=== PATIENT | male | born 1955 | race Asian ===

== ENCOUNTER 2016-05-20 23:18 | Inpatient (IN) | payer MEDICAID ==
[~2016-05-20] VITALS: Ht 172.7 cm; Wt 53.5 kg
[~2016-05-20 23:18] MED LIST: AMLO5TAB2 PO; ASPI81TA27 PO; ENAL2.5T PO; METO-159 PO; SIMV-13 PO; WARF3TAB22 PO
[2016-05-20] MEDS ORDERED: SODIUM CHLORIDE 0.9% 1,000 ML IVB ONE (23:33)
[2016-05-20] MEDS ORDERED: PANTOPRAZOLE SODIUM 80 MG in SODIUM CHL 0.9% 60 ML IV ONE (23:45)
[2016-05-20] MEDS ORDERED: PANTOPRAZOLE SODIUM 40 MG/10 ML VIAL IV ONE ×2 (23:45→23:54)
[2016-05-20] MEDS ORDERED: ONDANSETRON HCL 4 MG/2 ML VIAL IV ONE (23:45)
[2016-05-21] MEDS ORDERED: PANTOPRAZOLE SODIUM 40 MG/10 ML VIAL IV ONE (00:14)
[2016-05-21 01:26] LABS: Lactic Acid 3.5 mmol/L (0.4-2.0)
[2016-05-21 01:30] LABS: REFLEX LACTIC ACID YES OR NO YES
[2016-05-21 02:40] LABS: Basophils # (auto) 0 uL; Eosinophils # (auto) 0 uL; Hematocrit 49.7 % (41.0-53.0); Hemoglobin 16.7 g/dL (13.5-17.5); Lymphocytes # (auto) 0.5 uL; Lymphocytes % (auto) 4.1 % (10.0-50.0); Mean Corpuscular Hemoglobin 32.6 pg (28.0-32.0); Mean Corpuscular Hgb Conc. 33.7 g/dL (32.0-36.0); Mean Corpuscular Volume 96.8 fL (80.0-100.0); Mean Platelet Volume 9.5 fL (7.4-10.4); Monocytes # (auto) 0.2 uL; Monocytes % (auto) 1.6 % (0.0-12.0); Neutrophils # (auto) 11.1 uL; Neutrophils % (auto) 94.3 % (37.0-80.0); Platelet Count (auto) 160 10^3/uL (140-450); Red Cell Distribution Width 14.1 % (11.6-16.0); White Blood Cell 11.8 10^3/uL (4.4-10.8)
[2016-05-21 02:55] LABS: INR 1.1 (0.9-1.15); Prothrombin Time 11.3 sec (9.37-12.3)
[2016-05-21 02:59] LABS: Albumin 3.3 g/dL (3.4-5.0); BUN/Creatinine Ratio 16.4; Magnesium 2.3 mg/dL (1.6-2.6); Potassium 3.4 mmol/L (3.5-5.1)
[2016-05-21 03:04] LABS: Bilirubin, Total 1.4 mg/dL (0.2-1.0); Total Protein 7.3 g/dL (6.4-8.2)
[2016-05-21] MEDS ORDERED: PROMETHAZINE HCL 25 MG/ML 1ML IV PRN (07:00)
[2016-05-21] MEDS ORDERED: LORazepam 2MG/ML-1ML VIAL IV PRN (07:00)
[2016-05-21] MEDS ORDERED: NITROGLYCERIN 0.4 MG SL TAB SL PRN (07:00)
[2016-05-21] MEDS ORDERED: MORPHINE SULF INJ 2 MG/ML SYRINGE 1ML IV PRN (07:00)
[2016-05-21] MEDS: SODIUM CHLORIDE 0.9% 1,000 ML IV SCH ×2 (07:20→21:26)
[2016-05-21 09:00] VITALS: BP 149/100
[2016-05-21] MEDS ORDERED: cefTRIAXone 1GM/50ML D5W 50 ML IV SCH (10:00)
[2016-05-21] MEDS ORDERED: CEFOTETAN 1GM/D5W 50ML BAG 50 ML IV SCH (10:00)
[2016-05-21] MEDS ORDERED: PANTOPRAZOLE SODIUM 40 MG/10 ML VIAL IV SCH (10:00)
[2016-05-21 12:11] LABS: Hematocrit 50.6 % (41.0-53.0); Hemoglobin 16.9 g/dL (13.5-17.5)
[2016-05-21] MEDS: PANTOPRAZOLE SODIUM 40 MG/10 ML VIAL IV SCH ×2 (12:12→21:26)
[2016-05-21 12:56] VITALS: BP 157/110
[2016-05-21] MEDS ORDERED: METOPROLOL TARTRATE 50 MG TAB PO ONE (16:45)
[2016-05-21 16:53] VITALS: BP 154/103
[2016-05-21 18:10] LABS: Hematocrit 51.1 % (41.0-53.0); Hemoglobin 17.1 g/dL (13.5-17.5)
[2016-05-21] MEDS: MORPHINE SULF INJ 2 MG/ML SYRINGE 1ML IV PRN (18:50)
[2016-05-21 22:00] VITALS: BP_SYST 122; BP_SYST 135; BP_DIAS 101; BP_DIAS 69
[2016-05-22 01:28] LABS: Hematocrit 47.8 % (41.0-53.0); Hemoglobin 15.9 g/dL (13.5-17.5)
[2016-05-22 03:16] LABS: Urine Bilirubin Negative (Negative); Urine Color Brown (Yellow); Urine Glucose Normal (Normal); Urine Mucus FEW (None Seen); Urine Nitrite Negative (Negative); Urine RBC 331 /hpf (0 - 3); Urine Squamous Epithelial Cell FEW /hpf (<5); Urine pH 6.5 (5.0-8.0)
[2016-05-22 03:17] LABS: Urine Blood 2+ /uL (Negative); Urine Ketone 1+ (Negative)
[2016-05-22 05:00] VITALS: BP 123/82
[2016-05-22 05:24] LABS: Basophils # (auto) 0 uL; Basophils % (auto) 0.2 % (0.0-2.0); Eosinophils # (auto) 0 uL; Eosinophils % (auto) 0.1 % (0.0-7.0); Hemoglobin 15.4 g/dL (13.5-17.5); Lymphocytes # (auto) 1.4 uL; Lymphocytes % (auto) 13.9 % (10.0-50.0); Mean Corpuscular Hemoglobin 32.4 pg (28.0-32.0); Mean Corpuscular Hgb Conc. 33.4 g/dL (32.0-36.0); Mean Corpuscular Volume 96.9 fL (80.0-100.0); Mean Platelet Volume 9.7 fL (7.4-10.4); Monocytes # (auto) 0.6 uL; Neutrophils # (auto) 7.9 uL; Neutrophils % (auto) 79.8 % (37.0-80.0); Platelet Count (auto) 178 10^3/uL (140-450); Red Cell Distribution Width 14.6 % (11.6-16.0); White Blood Cell 9.9 10^3/uL (4.4-10.8)
[2016-05-22] MEDS: SODIUM CHLORIDE 0.9% 1,000 ML IV SCH ×3 (06:57→21:37)
[2016-05-22] MEDS ORDERED: SODIUM CHLORIDE LOCK 10 ML ONE (08:10)
[2016-05-22] MEDS ORDERED: LIDOCAINE VISCOUS 2% 15ML UD ONE (08:10)
[2016-05-22] MEDS ORDERED: diphenhdrAMINE HCL 50 MG/1 ML VL ONE (08:11)
[2016-05-22 09:00] VITALS: BP 134/91
[2016-05-22] MEDS: fentaNYL CITRATE 100 MCG/2 ML VL ONE ×2 (09:58→10:04)
[2016-05-22] MEDS: MIDAZOLAM HCL 5 MG/ML-1ML VIAL ONE ×2 (09:58→10:04)
[2016-05-22 13:00] VITALS: BP 137/92
[2016-05-22] MEDS: METOPROLOL SUCCINATE XL 50 MG TAB PO SCH (14:28)
[2016-05-22 17:00] VITALS: BP 137/89
[2016-05-22 21:30] VITALS: BP 131/88
[2016-05-22] MEDS: PANTOPRAZOLE 40 MG TAB PO SCH (21:37)
[2016-05-23] MEDS: MORPHINE SULF INJ 2 MG/ML SYRINGE 1ML IV PRN ×2 (02:14→06:56)
[2016-05-23 05:00] VITALS: BP 155/86
[2016-05-23] MEDS: SODIUM CHLORIDE 0.9% 1,000 ML IV SCH (06:45)
[2016-05-23 07:50] VITALS: BP 161/90
[2016-05-23 09:00] VITALS: BP 161/90
[2016-05-23] MEDS: METOPROLOL SUCCINATE XL 50 MG TAB PO SCH (10:48)
[2016-05-23] MEDS: PANTOPRAZOLE 40 MG TAB PO SCH (10:48)
[2016-05-23 13:00] VITALS: BP 154/95
[2016-05-23 13:13] VITALS: BP 154/95
[2016-05-23 17:00] VITALS: BP 132/83
== END 2016-05-23 20:45 | disposition home or self-care (01) | DRG 241 ==
LOC: ER 05-21 00:12 → EDUNIT# 05-21 00:13 → TELE 05-21 00:13 → TELE-CENTR 05-21 07:57 → CENTRAL 05-23 04:50
PROVIDERS: ADMIT Internal Medicine; ATTEND Internal Medicine
PROC: 0DB68ZX Excision of Stomach, Via Natural or Artificial Opening Endoscopic, Diagnostic (ICD-10-PCS; 2016-05-22)
PROC: 0DB58ZX Excision of Esophagus, Via Natural or Artificial Opening Endoscopic, Diagnostic (ICD-10-PCS; principal; 2016-05-22 09:53)
DX: K29.01 Acute gastritis with bleeding (principal); I69.351 Hemiplegia and hemiparesis following cerebral infarction affecting right dominant side; K27.9 Peptic ulcer, site unspecified, unspecified as acute or chronic, without hemorrhage or perforation; I10 Essential (primary) hypertension; K20.9 Esophagitis, unspecified; E87.6 Hypokalemia; N21.0 Calculus in bladder; K52.9 Noninfective gastroenteritis and colitis, unspecified; E78.5 Hyperlipidemia, unspecified; Z82.3 Family history of stroke; Z82.49 Family history of ischemic heart disease and other diseases of the circulatory system; Z87.11 Personal history of peptic ulcer disease; R73.9 Hyperglycemia, unspecified; D72.829 Elevated white blood cell count, unspecified
CPT/HCPCS: 36415; 36600; 43239; 71010; 74176; 80053; 81001; 82150; 82805; 83605; 83690; 83735; 84484; 85014; 85018; 85025; 85045; 85610; 85730; 86850; 86900; 86901; 93005; 96365; 96366; 96375; 99291; C9113; J2250; J2405

== ENCOUNTER 2020-01-05 00:05 | Inpatient (IN) | payer MEDICAID ==
[~2020-01-05] VITALS: Ht 162.6 cm; Wt 54.3 kg
[~2020-01-05 00:05] MED LIST changes: -AMLO5TAB2 PO; -ASPI81TA27 PO; -ENAL2.5T PO; +FERR-20 PO; +LEVE500T32 PO; -METO-159 PO; +METO-169 PO; +PANT40TA2 PO
[2020-01-05] MEDS ORDERED: SODIUM CHLORIDE 0.9% 1,000 ML IV ONE (00:30)
[2020-01-05 00:34] LABS: Basophils # (auto) 0 10 ^3/uL (0-0.2); Basophils % (auto) 0.2 % (0.0-2.0); Eosinophils # (auto) 0 10 ^3/uL (0-0.8); Eosinophils % (auto) 0.2 % (0.0-7.0); Hematocrit 50.9 % (41.0-53.0); Hemoglobin 17.6 g/dL (13.5-17.5); Lymphocytes # (auto) 0.8 10 ^3/uL (0.4-5.4); Lymphocytes % (auto) 7.3 % (10.0-50.0); Mean Corpuscular Hemoglobin 33.4 pg (28.0-32.0); Mean Corpuscular Hgb Conc. 34.6 g/dL (32.0-36.0); Mean Corpuscular Volume 96.4 fL (80.0-100.0); Monocytes # (auto) 0.5 10 ^3/uL (0-1.3); Monocytes % (auto) 4.2 % (0.0-12.0); Neutrophils % (auto) 88.1 % (37.0-80.0); Platelet Count (auto) 150 10^3/uL (140-450); Red Blood Cells 5.27 10^6/uL (4.5-5.90); Red Cell Distribution Width 13.8 % (11.8-14.3); White Blood Cell 11.4 10^3/uL (4.4-10.8)
[2020-01-05] MEDS: MORPHINE SULF INJ 2 MG/ML SYRINGE 1ML IV ONE ×2 (00:35→00:46)
[2020-01-05] MEDS: ONDANSETRON HCL 4 MG/2 ML VIAL IV ONE ×2 (00:36→00:45)
[2020-01-05 00:58] LABS: Albumin 3.3 g/dL (3.4-5.0); BUN/Creatinine Ratio 16.2; Calcium 8.4 mg/dL (8.5-10.1); Potassium 3.3 mmol/L (3.5-5.1)
[2020-01-05 01:00] LABS: Bilirubin, Total 0.9 mg/dL (0.2-1.0); Total Protein 7.8 g/dL (6.4-8.2)
[2020-01-05 01:33] LABS: Magnesium 2.1 mg/dL (1.6-2.6)
[2020-01-05 01:35] LABS: INR 1.11 (0.9-1.15); Partial Thromboplastin Time 29.3 sec (23.0-31.2)
[2020-01-05] MEDS ORDERED: ENOXAPARIN SOD 100 MG/1 ML SYRINGE SC ONE (05:00)
[2020-01-05] MEDS ORDERED: ZOLPIDEM TARTRATE 5 MG TAB PO PRN (06:15)
[2020-01-05] MEDS ORDERED: guaiFENesin-DM 100/10mg/5ml SYR PO PRN (06:15)
[2020-01-05] MEDS ORDERED: MORPHINE SULF INJ 2 MG/ML SYRINGE 1ML IV PRN (06:15)
[2020-01-05] MEDS ORDERED: SODIUM CHLORIDE 0.9% 1,000 ML IV SCH (06:15)
[2020-01-05] MEDS ORDERED: ONDANSETRON HCL 4 MG/2 ML VIAL IV PRN (06:15)
[2020-01-05] MEDS ORDERED: NITROGLYCERIN 0.4 MG SL TAB SL PRN (06:15)
[2020-01-05] MEDS ORDERED: ACETAMINOPHEN 325 MG TAB PO PRN (06:15)
[2020-01-05] MEDS ORDERED: LORazepam 0.5 MG TAB PO PRN (06:15)
[2020-01-05 06:23] LABS: Urine Bacteria FEW /hpf (None Seen); Urine Blood 1+ /uL (Negative); Urine Hyaline Cast FEW /lpf (0 - 2); Urine Specific Gravity 1.022 (1.001-1.035); Urine WBC 2 /hpf (0 - 3)
[2020-01-05 07:31] LABS: Cholesterol 87 mg/dL (< 200); HDL Cholesterol 36 mg/dL (40-59); LDL Cholesterol 49 mg/dL (< 100); Triglycerides 65 mg/dL (< 150)
[2020-01-05] MEDS ORDERED: POTASSIUM CHL 20 Meq TABLET PO ONE ×2 (07:53→08:00)
[2020-01-05] MEDS: ASPirin 81 mg TAB PO SCH (07:56)
[2020-01-05] MEDS: DOCUSATE SOD 100 MG CAP PO SCH (07:58)
[2020-01-05 07:59] LABS: CRP High Sensitivity 0.94 mg/dL (< 0.3)
[2020-01-05 09:00] VITALS: BP 135/92
[2020-01-05] MEDS ORDERED: LISINOPRIL 5 MG TAB PO SCH (10:00)
[2020-01-05] MEDS ORDERED: CLOPIDOGREL BISULFATE 75 MG TAB PO SCH (10:00)
[2020-01-05] MEDS ORDERED: CARVEDILOL 3.125 MG TAB PO SCH (10:00)
[2020-01-05] MEDS ORDERED: LEVE750T3 PO (11:07)
[2020-01-05] MEDS ORDERED: MET50T PO (11:07)
[2020-01-05] MEDS ORDERED: GLUC1CAP12 PO (11:09)
[2020-01-05] MEDS ORDERED: PSYL100P8 PO (11:09)
[2020-01-05 13:00] VITALS: BP 132/84
[2020-01-05] MEDS ORDERED: METOPROLOL TARTRATE 25 MG TAB PO ONE (13:45)
[2020-01-05] MEDS ORDERED: ENOXAPARIN SOD 60 MG/0.6 ML SYRINGE SC ONE (13:45)
[2020-01-05] MEDS ORDERED: levETIRAcetam 500 MG TAB PO ONE (13:45)
[2020-01-05 16:30] VITALS: BP 140/72
[2020-01-05] MEDS ORDERED: ENOXAPARIN SOD 60 MG/0.6 ML SYRINGE SC SCH (18:00)
[2020-01-05] MEDS: ATORVASTATIN 20 MG TAB PO SCH (21:20)
[2020-01-05] MEDS: levETIRAcetam 500 MG TAB PO SCH (21:20)
[2020-01-05] MEDS: METOPROLOL TARTRATE 25 MG TAB PO SCH (21:21)
[2020-01-05 22:00] VITALS: BP 160/90
[2020-01-06] VITALS (7 sets, daily range): BP systolic 133–156; BP diastolic 66–100
[2020-01-06 07:31] LABS: Basophils # (auto) 0 10 ^3/uL (0-0.2); Basophils % (auto) 0.4 % (0.0-2.0); Eosinophils # (auto) 0.1 10 ^3/uL (0-0.8); Eosinophils % (auto) 2.4 % (0.0-7.0); Hematocrit 44.3 % (41.0-53.0); Hemoglobin 14.9 g/dL (13.5-17.5); Lymphocytes # (auto) 1.2 10 ^3/uL (0.4-5.4); Mean Corpuscular Hemoglobin 32.8 pg (28.0-32.0); Mean Corpuscular Hgb Conc. 33.8 g/dL (32.0-36.0); Mean Corpuscular Volume 97.1 fL (80.0-100.0); Monocytes # (auto) 0.5 10 ^3/uL (0-1.3); Monocytes % (auto) 8.8 % (0.0-12.0); Neutrophils # (auto) 3.6 10 ^3/uL (1.6-8.6); Neutrophils % (auto) 66.4 % (37.0-80.0); Platelet Count (auto) 140 10^3/uL (140-450); Red Blood Cells 4.56 10^6/uL (4.5-5.90); Red Cell Distribution Width 13.4 % (11.8-14.3); White Blood Cell 5.4 10^3/uL (4.4-10.8)
[2020-01-06 07:57] LABS: Potassium 3.7 mmol/L (3.5-5.1)
[2020-01-06] MEDS ORDERED: ADENOSINE 46 MG in GIVE UN-DILUTED 0 ML IV STA (08:10)
[2020-01-06 08:11] LABS: Albumin 2.9 g/dL (3.4-5.0); BUN/Creatinine Ratio 15.3; Bilirubin, Total 0.6 mg/dL (0.2-1.0); Calcium 8.2 mg/dL (8.5-10.1); Magnesium 2.4 mg/dL (1.6-2.6); Total Protein 6.5 g/dL (6.4-8.2)
[2020-01-06] MEDS ORDERED: ENOXAPARIN SOD 40 MG/0.4 ML SYRINGE SC SCH (10:00)
[2020-01-06] MEDS: levETIRAcetam 500 MG TAB PO SCH ×2 (13:07→21:49)
[2020-01-06] MEDS: DOCUSATE SOD 100 MG CAP PO SCH (13:07)
[2020-01-06] MEDS: ASPirin 81 mg TAB PO SCH (13:07)
[2020-01-06] MEDS: METOPROLOL TARTRATE 25 MG TAB PO SCH ×2 (13:08→21:50)
[2020-01-06] MEDS ORDERED: ENALAPRIL MALEATE 2.5 MG TAB PO PRN (18:00)
[2020-01-06] MEDS: ATORVASTATIN 20 MG TAB PO SCH (21:49)
[2020-01-07 06:00] VITALS: BP 137/92
[2020-01-07 06:07] LABS: Hematocrit 44.8 % (41.0-53.0); Hemoglobin 15.2 g/dL (13.5-17.5)
[2020-01-07] MEDS: METOPROLOL TARTRATE 25 MG TAB PO SCH ×2 (08:53→21:57)
[2020-01-07] MEDS: DOCUSATE SOD 100 MG CAP PO SCH (08:54)
[2020-01-07] MEDS: levETIRAcetam 500 MG TAB PO SCH ×2 (08:54→21:56)
[2020-01-07 09:00] VITALS: BP 139/84
[2020-01-07 13:00] VITALS: BP 132/80
[2020-01-07 16:32] VITALS: BP 133/88
[2020-01-07] MEDS: ATORVASTATIN 20 MG TAB PO SCH (21:56)
[2020-01-08 05:50] VITALS: BP 143/97
[2020-01-08 06:06] LABS: Hematocrit 44.2 % (41.0-53.0)
[2020-01-08 09:00] VITALS: BP 143/85
[2020-01-08] MEDS: DOCUSATE SOD 100 MG CAP PO SCH (09:19)
[2020-01-08] MEDS: levETIRAcetam 500 MG TAB PO SCH (09:19)
[2020-01-08] MEDS: METOPROLOL TARTRATE 25 MG TAB PO SCH (10:00)
[2020-01-08 13:00] VITALS: BP 134/83
[2020-01-08] MEDS ORDERED: amLODIPine BESYLATE 5 MG TAB PO ONE (13:00)
[2020-01-08] MEDS ORDERED: AML5T PO (13:03)
[2020-01-08 15:10] VITALS: BP 134/83
[2020-01-08 17:00] VITALS: BP 121/77
== END 2020-01-08 17:05 | disposition home health service (06) | DRG 425 ==
LOC: EDBD 00:05 → ER 00:05 → TELE 00:06 → TELE-EAST 08:51 → TELE-CENTR 17:36
PROVIDERS: ADMIT Hospitalist; ATTEND Internal Medicine
DX: E87.6 Hypokalemia (principal); I21.A1 Myocardial infarction type 2; J40 Bronchitis, not specified as acute or chronic; N20.0 Calculus of kidney; I69.351 Hemiplegia and hemiparesis following cerebral infarction affecting right dominant side; I10 Essential (primary) hypertension; E78.5 Hyperlipidemia, unspecified; G40.909 Epilepsy, unspecified, not intractable, without status epilepticus; G93.89 Other specified disorders of brain; I07.1 Rheumatic tricuspid insufficiency; N36.8 Other specified disorders of urethra; R65.10 Systemic inflammatory response syndrome (SIRS) of non-infectious origin without acute organ dysfunction; R31.9 Hematuria, unspecified; R32 Unspecified urinary incontinence; K21.9 Gastro-esophageal reflux disease without esophagitis; Z20.828 Contact with and (suspected) exposure to other viral communicable diseases; Z79.899 Other long term (current) drug therapy; Z82.3 Family history of stroke; Z82.49 Family history of ischemic heart disease and other diseases of the circulatory system; Z87.442 Personal history of urinary calculi
CPT/HCPCS: 36415; 51702; 70450; 71045; 74176; 78452; 80053; 80061; 81001; 82150; 82728; 83615; 83690; 83735; 83880; 84443; 84484; 85014; 85018; 85025; 85379; 85610; 85730; 86141; 87070; 87426; 87804; 87880; 93005; 93017; 93306; 96361; 96372; 96374; 96375; 97110; 97530; G0378; J0153; J2405

== ENCOUNTER 2021-09-03 18:57 | Inpatient (IN) | payer MEDICAID ==
[~2021-09-03] VITALS: Ht 160 cm; Wt 50.1 kg
[~2021-09-03 18:57] MED LIST changes: +AML5T PO; -FERR-20 PO; +GLUC1CAP12 PO; +LEVE1TAB47 PO; -LEVE500T32 PO; +LEVE750T3 PO; +METO-158 PO; -METO-169 PO; -PANT40TA2 PO; +PSYL100P8 PO; -WARF3TAB22 PO
[2021-09-03 22:10] LABS: Basophils # (auto) 0 10 ^3/uL (0-0.2); Basophils % (auto) 0.1 % (0.0-2.0); Eosinophils # (auto) 0 10 ^3/uL (0-0.8); Monocytes # (auto) 0.2 10 ^3/uL (0-1.3); Nucleated Red Blood Cells % 0.1 %
[2021-09-03] MEDS ORDERED: SODIUM CHLORIDE 0.9% 500 ML IV ONE (22:15)
[2021-09-03] MEDS ORDERED: cefTRIAXone 1GM/50ML D5W 50 ML IV ONE (22:15)
[2021-09-03] MEDS ORDERED: ONDANSETRON HCL 4 MG/2 ML VIAL IV ONE (22:15)
[2021-09-03 22:16] LABS: Hematocrit 55.9 % (41.0-53.0); Hemoglobin 18.3 g/dL (13.5-17.5); Lymphocytes # (auto) 0.4 10 ^3/uL (0.4-5.4); Lymphocytes % (auto) 5.7 % (10.0-50.0); Mean Corpuscular Hemoglobin 32.3 pg (28.0-32.0); Mean Corpuscular Hgb Conc. 32.7 g/dL (32.0-36.0); Mean Corpuscular Volume 98.8 fL (80.0-100.0); Monocytes % (auto) 2.4 % (0.0-12.0); Neutrophils # (auto) 5.8 10 ^3/uL (1.6-8.6); Neutrophils % (auto) 91.8 % (37.0-80.0); Red Blood Cells 5.65 10^6/uL (4.5-5.90); Red Cell Distribution Width 13.9 % (11.8-14.3); White Blood Cell 6.3 10^3/uL (4.4-10.8)
[2021-09-03 22:30] LABS: Albumin 3.4 g/dL (3.4-5.0); Anion Gap 9 (5-15); Blood Urea Nitrogen 29 mg/dL (7-18); Calcium 8.8 mg/dL (8.5-10.1); Carbon Dioxide 23 mmol/L (21-32); Chloride 108 mmol/L (98-107); Glucose 124 mg/dL (74-106); Magnesium 2.5 mg/dL (1.6-2.6); Potassium 4.1 mmol/L (3.5-5.1); Sodium 140 mmol/L (136-145)
[2021-09-03 22:35] LABS: Alanine Aminotransferase 25 U/L (16-61); Alkaline Phosphatase 58 U/L (45-117); Aspartate Aminotransferase 24 U/L (15-37); Bilirubin, Total 1.3 mg/dL (0.2-1.0); GFR African American 78 mL/min; GFR Non-African American 64 mL/min; Lipase 134 U/L (73-393)
[2021-09-03 22:46] LABS: Blood Alcohol < 3.0 mg/dL (0-5)
[2021-09-03 23:00] LABS: CRP High Sensitivity 1.42 mg/dL (< 0.3)
[2021-09-04] MEDS ORDERED: DEXTROSE (50%) 50ML SYRG IV PRN (00:30)
[2021-09-04] MEDS ORDERED: HYDROcodone-ACET 5/325MG TAB PO PRN (00:30)
[2021-09-04] MEDS ORDERED: MORPHINE SULFATE INJ 2 MG/ml SYRG IV PRN (00:30)
[2021-09-04] MEDS ORDERED: ACETAMINOPHEN 325 MG TAB PO PRN (00:30)
[2021-09-04] MEDS ORDERED: ONDANSETRON HCL 4 MG/2 ML VIAL IV PRN (00:30)
[2021-09-04] MEDS ORDERED: LORazepam 0.5 MG TAB PO PRN (00:30)
[2021-09-04] MEDS ORDERED: DOCUSATE SOD 100 MG CAP PO PRN (00:30)
[2021-09-04] MEDS ORDERED: POLYETHYLENE GLYCOL 17 GM PWDR PO PRN (00:45)
[2021-09-04] MEDS: SODIUM CHLORIDE 0.9% 1,000 ML IV SCH ×2 (00:49→18:50)
[2021-09-04 01:09] LABS: Cholesterol 103 mg/dL (< 200)
[2021-09-04 01:12] LABS: HDL Cholesterol 40 mg/dL (40-59); LDL Cholesterol 59 mg/dL (< 100); Triglycerides 58 mg/dL (< 150)
[2021-09-04] MEDS: InsuLIN REG 1unit/0.01ml Soln (100units/ml) SC SCH ×4 (06:00→23:55)
[2021-09-04] MEDS: ACCU-CHEK COMFORT CURVE STRIP VI SCH ×4 (06:10→23:56)
[2021-09-04] MEDS ORDERED: MAGNESIUM CITRATE SOLUTION 300 ML BTL PO ONE (09:30)
[2021-09-04 17:00] VITALS: BP 121/74
[2021-09-04] MEDS ORDERED: ATEN50TA PO (17:26)
[2021-09-04] MEDS ORDERED: SIMV-13 PO (17:26)
[2021-09-04] MEDS ORDERED: KEP500T PO (17:26)
[2021-09-04] MEDS ORDERED: hydrALAZINE HCL 20 MG/ML VL IV PRN (19:15)
[2021-09-04 19:40] VITALS: BP 113/72
[2021-09-04 20:00] VITALS: BP 128/80
[2021-09-04 21:42] VITALS: BP 128/80
[2021-09-05 04:58] VITALS: BP 153/82
[2021-09-05] MEDS: InsuLIN REG 1unit/0.01ml Soln (100units/ml) SC SCH ×3 (06:00→18:00)
[2021-09-05 06:41] LABS: Basophils # (auto) 0 10 ^3/uL (0-0.2); Basophils % (auto) 0.3 % (0.0-2.0); Eosinophils # (auto) 0.1 10 ^3/uL (0-0.8); Eosinophils % (auto) 1.1 % (0.0-7.0); Hematocrit 44.3 % (41.0-53.0); Hemoglobin 15.1 g/dL (13.5-17.5); Lymphocytes # (auto) 0.8 10 ^3/uL (0.4-5.4); Lymphocytes % (auto) 9.2 % (10.0-50.0); Mean Corpuscular Hemoglobin 33.2 pg (28.0-32.0); Mean Corpuscular Volume 97.7 fL (80.0-100.0); Monocytes # (auto) 0.4 10 ^3/uL (0-1.3); Monocytes % (auto) 4.6 % (0.0-12.0); Neutrophils # (auto) 7.8 10 ^3/uL (1.6-8.6); Neutrophils % (auto) 84.8 % (37.0-80.0); Red Blood Cells 4.53 10^6/uL (4.5-5.90); White Blood Cell 9.1 10^3/uL (4.4-10.8)
[2021-09-05] MEDS: ACCU-CHEK COMFORT CURVE STRIP VI SCH ×3 (06:47→18:47)
[2021-09-05 06:57] LABS: Calcium 8.3 mg/dL (8.5-10.1)
[2021-09-05 07:00] LABS: BUN/Creatinine Ratio 22.5
[2021-09-05 09:00] VITALS: BP 133/85
[2021-09-05] MEDS: SODIUM CHLORIDE 0.9% 1,000 ML IV SCH (11:34)
[2021-09-05 13:00] VITALS: BP 154/85
[2021-09-05 16:34] VITALS: BP 142/89
[2021-09-05 22:00] VITALS: BP 158/93
[2021-09-06] MEDS: ACCU-CHEK COMFORT CURVE STRIP VI SCH ×4 (01:26→18:54)
[2021-09-06 05:00] VITALS: BP 134/76
[2021-09-06 05:58] LABS: Basophils # (auto) 0 10 ^3/uL (0-0.2); Basophils % (auto) 0.1 % (0.0-2.0); Eosinophils # (auto) 0.3 10 ^3/uL (0-0.8); Eosinophils % (auto) 3.7 % (0.0-7.0); Hematocrit 43.7 % (41.0-53.0); Hemoglobin 14.9 g/dL (13.5-17.5); Lymphocytes # (auto) 1.1 10 ^3/uL (0.4-5.4); Lymphocytes % (auto) 13.9 % (10.0-50.0); Mean Corpuscular Hemoglobin 33.2 pg (28.0-32.0); Mean Corpuscular Hgb Conc. 34.1 g/dL (32.0-36.0); Mean Corpuscular Volume 97.3 fL (80.0-100.0); Monocytes # (auto) 0.5 10 ^3/uL (0-1.3); Monocytes % (auto) 6.6 % (0.0-12.0); Neutrophils % (auto) 75.7 % (37.0-80.0); Red Blood Cells 4.49 10^6/uL (4.5-5.90); Red Cell Distribution Width 13.6 % (11.8-14.3); White Blood Cell 7.9 10^3/uL (4.4-10.8)
[2021-09-06] MEDS: InsuLIN REG 1unit/0.01ml Soln (100units/ml) SC SCH ×4 (06:00→18:00)
[2021-09-06 06:16] LABS: Calcium 8.3 mg/dL (8.5-10.1); Potassium 3.8 mmol/L (3.5-5.1)
[2021-09-06 06:20] LABS: BUN/Creatinine Ratio 17.3
[2021-09-06 09:00] VITALS: BP 126/65
[2021-09-06 13:00] VITALS: BP 132/73
[2021-09-06 16:13] VITALS: BP 155/79
[2021-09-06 22:26] VITALS: BP 149/85
[2021-09-07 05:36] VITALS: BP 156/78
[2021-09-07] MEDS: InsuLIN REG 1unit/0.01ml Soln (100units/ml) SC SCH ×3 (05:59→12:25)
[2021-09-07] MEDS: ACCU-CHEK COMFORT CURVE STRIP VI SCH ×3 (05:59→12:25)
[2021-09-07 09:00] VITALS: BP 148/90
[2021-09-07 13:00] VITALS: BP 149/99
[2021-09-07 16:45] VITALS: BP 161/94
== END 2021-09-07 17:42 | disposition home or self-care (01) | DRG 247 ==
LOC: EDUNIT# 18:57 → EDBD 18:57 → ER 18:57 → OVERFLOW 09-04 00:25 → WEST WING 09-04 14:51
PROVIDERS: ADMIT Hospitalist; ATTEND Internal Medicine Pulmonary Disease
DX: K56.41 Fecal impaction (principal); I69.351 Hemiplegia and hemiparesis following cerebral infarction affecting right dominant side; I10 Essential (primary) hypertension; E78.00 Pure hypercholesterolemia, unspecified; E78.5 Hyperlipidemia, unspecified; K21.9 Gastro-esophageal reflux disease without esophagitis
CPT/HCPCS: 36415; 74176; 80048; 80053; 80061; 80320; 82962; 83036; 83605; 83690; 83735; 83880; 84484; 85025; 86141; 86850; 86900; 86901; 87040; 96365; 96375; G0378; J0696; J2405